=== PATIENT | female | born 1965 | race Two or more races ===

== ENCOUNTER 2019-03-14 17:42 | Emergency (ER) | payer OTHER ==
[~2019-03-14] VITALS: Ht 177.8 cm; Wt 113.4 kg
[~2019-03-14 17:42] MED LIST: TYLENOL-CODEINE1 TAB PO
== END 2019-03-14 21:17 | disposition home or self-care (01) ==
LOC: ER 17:42
DX: B00.2 Herpesviral gingivostomatitis and pharyngotonsillitis (principal)

== ENCOUNTER 2020-11-01 13:24 | Emergency (ER) | payer OTHER ==
[~2020-11-01] VITALS: Ht 175.3 cm; Wt 109.8 kg
[2020-11-01] MEDS ORDERED: SIMVASTATIN5 MG (13:42)
[2020-11-01] MEDS ORDERED: BYSTOLIC10 MG (13:42)
[2020-11-01] MEDS ORDERED: SYNTHROID150 MCG (13:42)
[2020-11-01] MEDS ORDERED: METFORMIN HCL500 M3 (13:43)
[2020-11-01] MEDS ORDERED: KETO10TA2 PO (16:19)
== END 2020-11-01 16:21 | disposition home or self-care (01) ==
LOC: ER 13:24
DX: S90.31XA Contusion of right foot, initial encounter (principal); W18.09XA Striking against other object with subsequent fall, initial encounter; Y93.89 Activity, other specified; Y92.89 Other specified places as the place of occurrence of the external cause; Y99.8 Other external cause status

== ENCOUNTER 2023-07-23 10:38 | Emergency (ER) | payer OTHER ==
[~2023-07-23] VITALS: Ht 175.3 cm; Wt 117.0 kg
[~2023-07-23 10:38] MED LIST changes: +BYSTOLIC10 MG; +KETO10TA2 PO; +METFORMIN HCL500 M3; +SIMVASTATIN5 MG; +SYNTHROID150 MCG
== END 2023-07-23 13:34 | disposition home or self-care (01) ==
LOC: ER 10:38
DX: H57.89 Other specified disorders of eye and adnexa (principal); E11.9 Type 2 diabetes mellitus without complications; Z79.84 Long term (current) use of oral hypoglycemic drugs; E03.9 Hypothyroidism, unspecified

== ENCOUNTER → 2023-11-19 | Emergency (ER) | payer OTHER ==
[~2023-11-19] VITALS: Ht 175.3 cm; Wt 115.7 kg
== END | disposition left against medical advice (07) ==
LOC: ER 16:08
DX: Z53.21 Procedure and treatment not carried out due to patient leaving prior to being seen by health care provider (principal)

== ENCOUNTER 2024-04-20 09:12 | Outpatient (CLI) | payer OTHER | END 2024-04-20 09:28 | disposition home or self-care (01) | LOC: MAMO-SONO 09:12 | PROVIDERS: ATTEND General Practice | DX: N64.9 Disorder of breast, unspecified (principal); Z12.31 Encounter for screening mammogram for malignant neoplasm of breast; Z12.39 Encounter for other screening for malignant neoplasm of breast ==

== ENCOUNTER 2024-04-30 09:51 | Outpatient (CLI) | payer OTHER | END 2024-04-30 10:03 | disposition home or self-care (01) | LOC: MAMO-SONO 09:51 | PROVIDERS: ATTEND General Practice | DX: N64.9 Disorder of breast, unspecified (principal); Z12.31 Encounter for screening mammogram for malignant neoplasm of breast; Z12.39 Encounter for other screening for malignant neoplasm of breast; N63.0 Unspecified lump in unspecified breast ==